=== PATIENT | female | born 1985 | race Asian ===

== ENCOUNTER 2021-11-08 22:30 | Inpatient (IN) | payer OTHER ==
[~2021-11-08] VITALS: Ht 165.1 cm; Wt 84.5 kg
[~2021-11-08 22:30] MED LIST: LORTAB 5/500 501 TAB PO; SYNTHROID0.125 MG/T PO
[2021-11-08 23:27] LABS: BASO # 0.1 K/mm3 (0.0-0.2); BASO % 0.5 % (0.0-2.0); EOS # 0.3 K/mm3 (0.0-0.7); EOS % 3.6 % (0.0-4.0); GRAN # 7.3 K/mm3 (1.4-6.5); GRAN % 76.9 % (42.2-75.2); HEMATOCRIT 40.2 % (37.0-47.0); HEMOGLOBIN 13.1 g/dl (12.5-16.0); LYMPH % 10.5 % (20.0-51.0); MEAN CELL VOLUME 89 fl (80.0-100.0); MEAN CORPUSCULAR HEMOGLOBIN 29 pg (27-31); MEAN CORPUSCULAR HGB CONC 33 g/dl (33.0-37.0); MEAN PLATELET VOLUME 10.4 fl (7.4-10.4); MONO # 0.8 K/mm3 (0.1-0.6); MONO % 8.3 % (1.7-9.3); PLATELET COUNT 369 K/mm3 (130-400); REDCELL DISTRIBUTION WIDTH-CV 17.1 % (11.5-14.5)
[2021-11-08 23:48] LABS: ALBUMIN 3.5 gm/dL (3.5-5.0); BILIRUBIN,TOTAL 0.3 mg/dL (0.2-1.2); C-REACTIVE PROTEIN 1.42 mg/dL (0.00-0.50); CALCIUM 8.5 mg/dL (8.4-10.2); CREATININE, serum 0.69 mg/dL (0.57-1.11); POTASSIUM 3.6 mmol/L (3.5-4.5); TOTAL PROTEIN 6.8 gm/dL (6.2-8.1)
[2021-11-09] VITALS (15 sets, daily range): BP systolic 108–129; BP diastolic 51–66; PULSE 68–84; TEMP 98–99.1
[2021-11-09 00:42] LABS: COLLECTION METHOD CLEAN CATCH
[2021-11-09 01:01] LABS: MUCOUS Present (NOT PRESENT); PH 5 (5-8); SQUAMOUS EPITHELIAL 0-2 /hpf (0-10); URINE APPEARANCE Clear (CLEAR/HAZY); URINE BACTERIA None Seen /hpf (NONE SEEN); URINE BILIRUBIN Negative (NEGATIVE); URINE BLOOD 1+ (NEGATIVE); URINE COLOR Yellow (YELLOW); URINE GLUCOSE Negative (NEGATIVE); URINE KETONE 2+ (NEGATIVE); URINE LEUKOCYTE ESTERASE Negative (NEGATIVE); URINE NITRATE Negative (NEGATIVE); URINE PROTEIN(semi-quant) Negative (NEGATIVE); URINE RBC 0-2 /hpf (0-2)
--- NOTE | 2021-11-09 02:29 | NUR ---
PT ARRIVES VIA W/C TO ROOM 324. IS ALERT AND ORIENTED X4.
[2021-11-09] MEDS ORDERED: HAILEY 24 FE 11 EACH PO (02:37)
--- NOTE | 2021-11-09 03:02 | NUR ---
MORPHINE 2MG IVP GIVEN FOR ABD PAIN. ORIENTED TO ROOM AND BED CONTROLS.
--- NOTE | 2021-11-09 06:15 | NUR ---
Pt reports nausea and pain, Zofran and Morphine given at this time.
[2021-11-09 07:57] LABS: BASO # 0.1 K/mm3 (0.0-0.2); BASO % 0.5 % (0.0-2.0); EOS # 0.3 K/mm3 (0.0-0.7); EOS % 2.5 % (0.0-4.0); GRAN # 8.5 K/mm3 (1.4-6.5); GRAN % 82.2 % (42.2-75.2); HEMATOCRIT 37.2 % (37.0-47.0); HEMOGLOBIN 12.1 g/dl (12.5-16.0); LYMPH # 0.8 K/mm3 (1.2-3.4); LYMPH % 7.9 % (20.0-51.0); MEAN CELL VOLUME 90 fl (80.0-100.0); MEAN CORPUSCULAR HEMOGLOBIN 29 pg (27-31); MEAN CORPUSCULAR HGB CONC 33 g/dl (33.0-37.0); MEAN PLATELET VOLUME 10.3 fl (7.4-10.4); MONO # 0.7 K/mm3 (0.1-0.6); MONO % 6.6 % (1.7-9.3); PLATELET COUNT 331 K/mm3 (130-400); RED BLOOD COUNT 4.13 M/mm3 (4.10-5.30)
[2021-11-09 08:10] LABS: BILIRUBIN,TOTAL 0.3 mg/dL (0.2-1.2); CALCIUM 7.7 mg/dL (8.4-10.2); CREATININE, serum 0.67 mg/dL (0.57-1.11); POTASSIUM 3.8 mmol/L (3.5-4.5); TOTAL PROTEIN 5.8 gm/dL (6.2-8.1)
--- NOTE | 2021-11-09 09:14 | NUR ---
AGREE WITH MYRIAM DONALD'S ASSESSMENTS OF PATIENT THIS AM.
--- NOTE | 2021-11-09 10:15 | NUR ---
PATIENT RESTING IN BED UPON ARRIVAL. VSS. PATIENT DENIES ANY PAIN AT THIS TIME. PATIENT REQUESTS FOR HER DAD, BHAVNA, TO BE NOTIFIED WHEN DR. HALE ROUNDS. PATIENT IS RESTING IN BED WITH CALL LIGHT NEAR.
--- NOTE | 2021-11-09 11:48 | NUR ---
PATIENT TO SURGERY PER BED WITH ÁLVARO DONALD FROM PACU.
--- NOTE | 2021-11-09 12:22 | NUR ---
Sw met with pt who stated preference to return home once medically stable. The pt lives at home with her parents. Her next of kin is her mother, Jody [phone]. The pt is independent on all ADLS and does not use and DME. The pt reports she does not have a PCP and declinded services of finding one. The pt gets her medications from [facility] and does not have any problems obtaining medications. NO DPOA-HC and not interested at this time. Time of DC father will be picking her up. No other needs stated. Sw to await further recommendations and follow up as needed. DC Plan: home
--- NOTE | 2021-11-09 19:30 | NUR ---
Bedside shift report received, assumed care for night court magistrate. Assessment complete. A&Ox4. Denies nausea/shortness of breath. VS stable. Rating pain 8/10 on pain scale-described as sharp intermittent pains-dilaudid given per dr order. Right AC IV with LR@@100mls/hr-infusing without difficulty. Remains NPO but provided with a small amount of water and sponges to moisten mouth. SCDs bilat. Plan of care discussed for this shift to include meds/calling for questions/concerns. Verbalizes understanding/denies needs. Call light in reach. Will monitor.
[2021-11-10] VITALS (14 sets, daily range): BP systolic 106–123; BP diastolic 44–66; PULSE 70–86; TEMP 97.9–98.7
--- NOTE | 2021-11-10 00:18 | NUR ---
Called with c/o pain and nausea. Rating pain 8/10 on pain scale to left abdomen-described as sharp intermittent pains. Dilaudid/zofran given per dr yost.
--- NOTE | 2021-11-10 04:00 | NUR ---
Called with c/o pain to left side of abdomen-rating pain 6/10 on pain scale-described as intermittent sharp pains. Dilaudid given per dr yost.
--- NOTE | 2021-11-10 05:58 | NUR ---
Rested off and on this shift. Received dilaudid several times for pain as well as zofran x1 for nausea. Has remained NPO. SCDs off per request. LR@100ml/hr to right AC IV-infusing well. Denies current questions/concerns. Call light in reach. Will monitor.
[2021-11-10 06:53] LABS: BASO # 0.1 K/mm3 (0.0-0.2); BASO % 0.6 % (0.0-2.0); EOS # 0.2 K/mm3 (0.0-0.7); EOS % 2.1 % (0.0-4.0); GRAN # 7.3 K/mm3 (1.4-6.5); GRAN % 80.6 % (42.2-75.2); HEMOGLOBIN 11.3 g/dl (12.5-16.0); LYMPH # 0.8 K/mm3 (1.2-3.4); LYMPH % 8.6 % (20.0-51.0); MEAN CELL VOLUME 93 fl (80.0-100.0); MEAN CORPUSCULAR HEMOGLOBIN 29 pg (27-31); MEAN CORPUSCULAR HGB CONC 31 g/dl (33.0-37.0); MEAN PLATELET VOLUME 11.2 fl (7.4-10.4); MONO # 0.7 K/mm3 (0.1-0.6); MONO % 7.8 % (1.7-9.3); PLATELET COUNT 324 K/mm3 (130-400); RED BLOOD COUNT 3.88 M/mm3 (4.10-5.30); REDCELL DISTRIBUTION WIDTH-CV 16.7 % (11.5-14.5)
[2021-11-10 07:07] LABS: ALBUMIN 2.8 gm/dL (3.5-5.0); BILIRUBIN,TOTAL 0.3 mg/dL (0.2-1.2); CALCIUM 7.7 mg/dL (8.4-10.2); CREATININE, serum 0.63 mg/dL (0.57-1.11); POTASSIUM 3.8 mmol/L (3.5-4.5); TOTAL PROTEIN 5.4 gm/dL (6.2-8.1)
[2021-11-10 07:09] LABS: HEMATOCRIT 36.1 % (37.0-47.0)
--- NOTE | 2021-11-10 09:54 | NUR ---
Initial visit; Patient thanked Primary Clinician for looking in on her and offering God's blessings. Primary Clinician will keep Cali in her prayers.
--- NOTE | 2021-11-10 10:16 | NUR ---
RECEIVED REPORT.PATIENT ALERT AND ORIENTED X3 AND RESTING IN BED. VSS. PATIENT HERE FOR ABDOMINAL PAIN, POST SIGMOIDOSCOPY YESTERDAY AND PREPARING FOR A SUBTOTAL COLECTOMY TODAY. PATIENT DENIES ANY QUESTIONS OR CONCERNS ABOUT SURGERY. PATIENT TOOK A SHOWER AND FELT THE PAIN HAD INCREASED DUE TO THE AMBULATION AND MOVEMENT. PATIENT C/O PAIN 7/10. PATIENT GIVEN PAIN MEDICATION. PATIENT STATES THE PAIN DECREASED TO A 5/10. PATIENT IS RESTING IN BED WITH CALL LIGHT WITHIN REACH.
--- NOTE | 2021-11-10 13:05 | NUR ---
Spoke to Cain Corado, made him aware of blood glucose of 66. No new orders at this time. Patient prepped for OR, check list completed. Lr to gravity. Patinet to the Or with Stephen lipscomb. Patient mother to Or waiting room.
--- NOTE | 2021-11-10 19:13 | NUR ---
Patient has returned from Or. Her supportive mother at bedside. Patient sleeping soundly. Arouses to name, but sleepy. Vss on O2. Midline incision dressing intact. Slight shadowing noted to top of incision. One lap site staple open to air. Ostomy appliance intact, stoma pink. no output. Nation to DD, urine output to be closely monitor. Ivf per orders, Lr to RAC. Blood sugar was rechecked, stable at 81. Bedside report to Jacinta.
--- NOTE | 2021-11-10 20:40 | NUR ---
PT DROWSY, COMPLAINS OF ABD PAIN. MEDICATED WITH DILAUDID 0.5MG IVP NOW. HAS MIDLINE INCISION WITH SHADOWING AT LOWER PORTION OF INCISION, LAP SITE PAULINO. VELÁSQUEZ WITH YELLOW URINE, CARES PROVIDED. ZOFRAN GIVEN FOR MILD NAUSEA, ICE CHIPS GIVEN.
--- NOTE | 2021-11-10 22:15 | NUR ---
DR RIVERA CALLED FOR PERSISTENT NAUSEA, PHENERGAN ORDERED.
--- NOTE | 2021-11-10 22:18 | NUR ---
PT REPORTS ABD PAIN 10/10, DILAUDID 0.5MG IVP AND OXYCODONE 5MG PO NOW.
--- NOTE | 2021-11-10 23:40 | NUR ---
PHENERGAN 12.5MG IVPB GIVEN FOR PERSISTENT NAUSEA.
[2021-11-11] VITALS (10 sets, daily range): BP systolic 111–134; BP diastolic 45–76; PULSE 62–100; TEMP 97.8–98.7
--- NOTE | 2021-11-11 00:34 | NUR ---
PT REPORTS NO NAUSEA, CRAMPING PAIN TO ABD, DILAUDID 0.5MG IVP NOW. MIDLINE INCISION WITH DISTAL INCISIONAL DRAINAGE NOTED. VELÁSQUEZ WITH GOOD OUTPUT.
--- NOTE | 2021-11-11 02:52 | NUR ---
Pt medicated with Oxycodone 5mg po and Dilaudid 0.5mg IVP at this time for abd pain 06/13.
--- NOTE | 2021-11-11 05:50 | NUR ---
CHANGED MIDLINE DRSG D/T SATURATION AND REPLACED WAFER/OSTOMY APPLIANCE D/T LEAKAGE. HAD 50CC BROWN LIQUID IN OSTOMY BAG. MEDICATED WITH DILAUDID 0.5MG IVP AT THIS TIME. REPORTS ONLY MILD NAUSEA. VELÁSQUEZ WITH GOOD URINE OUTPUT. IV SITE TO RAC WITH LR INFUSING WITHOUT PROBLEM.
[2021-11-11 06:51] LABS: HEMATOCRIT 39.4 % (37.0-47.0); HEMOGLOBIN 12.5 g/dl (12.5-16.0); MEAN CELL VOLUME 93 fl (80.0-100.0); MEAN CORPUSCULAR HEMOGLOBIN 30 pg (27-31); MEAN CORPUSCULAR HGB CONC 32 g/dl (33.0-37.0); MEAN PLATELET VOLUME 11.2 fl (7.4-10.4); PLATELET COUNT 341 K/mm3 (130-400); RED BLOOD COUNT 4.23 M/mm3 (4.10-5.30); REDCELL DISTRIBUTION WIDTH-CV 16.2 % (11.5-14.5)
[2021-11-11 07:20] LABS: CALCIUM 7.9 mg/dL (8.4-10.2); CREATININE, serum 0.71 mg/dL (0.57-1.11); MAGNESIUM 1.4 mg/dL (1.6-2.6); PHOSPHOROUS 2.1 mg/dL (2.3-4.7); POTASSIUM 4.4 mmol/L (3.5-4.5)
--- NOTE | 2021-11-11 15:38 | NUR ---
Received report. Patient drowsy, but arousable upon arrival. Patient alert and oriented. Lung sounds CTA. Assessed dressing and surgical site. Dressing clean and dry. Patient C/O pain with any movement. CAPSULE INSPECTOR pump ordered. Patient claimed her pain significantly reduced after beginning CAPSULE INSPECTOR pump going from a 7/10 to 2/10. Patient moved to chair prior to lunch. Patient tolerated clear liquids well.
--- NOTE | 2021-11-11 16:31 | NUR ---
Changed patient's dressing and wafer. Stoma was leaking onto wafer and midline dressing. Applied 4x4 and tape.
[2021-11-12] VITALS (9 sets, daily range): BP systolic 107–141; BP diastolic 52–73; PULSE 84–105; TEMP 98–98.9
--- NOTE | 2021-11-12 06:00 | NUR ---
CHANGED PTS MIDLINE DRSG D/T DRAINAGE. EMPTIED 70CC BAÑUELOS LIQUID FROM OSTOMY. PT HAS BEEN UP X1 FOR YULISA PAD CHANGE R/T HAVING HER PERIOD. PT RATES PAIN 2/10, DIP GUIDER STOVES DILAUDID CONTINUES.
[2021-11-12 07:03] LABS: MEAN CELL VOLUME 91 fl (80.0-100.0); MEAN CORPUSCULAR HGB CONC 32 g/dl (33.0-37.0); MEAN PLATELET VOLUME 10.3 fl (7.4-10.4); PLATELET COUNT 266 K/mm3 (130-400); RED BLOOD COUNT 3.38 M/mm3 (4.10-5.30); REDCELL DISTRIBUTION WIDTH-CV 15.8 % (11.5-14.5)
[2021-11-12 07:10] LABS: HEMATOCRIT 30.9 % (37.0-47.0); MEAN CORPUSCULAR HEMOGLOBIN 30 pg (27-31)
[2021-11-12 07:24] LABS: CALCIUM 7.7 mg/dL (8.4-10.2); CREATININE, serum 0.57 mg/dL (0.57-1.11); MAGNESIUM 1.5 mg/dL (1.6-2.6); PHOSPHOROUS 1.1 mg/dL (2.3-4.7); POTASSIUM 3.5 mmol/L (3.5-4.5)
--- NOTE | 2021-11-12 10:15 | NUR ---
Pt resting in bed upon entering room. Assisted pt to the restroom. She did well with standby assist and help with IV pole. She stated ambulation was not as bad as it was yesterday. Pt rating her pain 3/10 with movement. Pt is menstruating. Once pt back in bed, removed dressing. Midline incision with gordon intact. Removed wafer from ostomy, cleaned up site and new appliance applied. Dr Whiteside at bedside during this. Pt tolerated well. Once done, discussed different supplies with pt as well as ostomy care. IV fluids decreased per order.
--- NOTE | 2021-11-12 14:36 | NUR ---
Pt has been sitting up in the chair for a while. Assisted her to the restroom, pt was not able to void. Changed out underwear and pad. Assisted pt back to bed. She does move well, just slow. Pt continues to use HEALTH CLUB ATTENDANT for pain management. Once back in bed, had to change appliance due to it leaking. Tried different type of wafer. Talked through care while changing it. Ostomy continues to put out brown liquid stool. Watch Guard Gate in to talk with pt
--- NOTE | 2021-11-12 17:54 | NUR ---
Pt ambulated to the restroom. She did well and was able to void. Appliance again changed once pt got back to bed due to leaking. Pt appears tired. Reports that the pain is tolerable while using the CLINICAL CARE MANAGER. Ostomy is putting out more liquid stool at this time. Output is starting to have some consistency to it. Pt does have some complaints of feeling nauseated. PRN zofran given.
[2021-11-13] VITALS (8 sets, daily range): BP systolic 111–130; BP diastolic 60–70; PULSE 71–99; TEMP 97.6–98.6
--- NOTE | 2021-11-13 03:26 | NUR ---
PATIENT DOING WELL TONIGHT. C/O NAUSEA AT START OF SHIFT AND PRN PHENERGAN GIVEN. THEN PRN ZOFRAN LATER IN SHIFT. MIDLINE WITH SAMANTHA CDI AND OPEN TO AIR. ILLEOSTOMY HAS NOT LEAKED YET FOR US TONIGHT. HAS HAD BROWN/GREEN OUTPUT. PAIN CONTROLLED WITH INFORMATION SCIENTIST. ON PERIOD, MORE PADS AND MESH UNDERWEAR PROVIDED. NO FURTHER NEEDS AT THIS TIME.
[2021-11-13 06:38] LABS: HEMOGLOBIN 11.8 g/dl (12.5-16.0)
[2021-11-13 06:50] LABS: HEMATOCRIT 36.8 % (37.0-47.0)
[2021-11-13 06:59] LABS: CREATININE, serum 0.56 mg/dL (0.57-1.11); MAGNESIUM 1.7 mg/dL (1.6-2.6); PHOSPHOROUS 2.8 mg/dL (2.3-4.7); POTASSIUM 3.4 mmol/L (3.5-4.5)
--- NOTE | 2021-11-13 07:03 | NUR ---
Pt resting with eyes closed, even non labored breathing during shift report
--- NOTE | 2021-11-13 09:00 | NUR ---
Pt resting in bed upon entering for assessment. Pt rating pain 2/10 at this time, using DUMPSTER OPERATOR. Dr Whiteside has been in to see pt, new orders wrote. Discussed new orders with pt. Ostomy appliance well secure. Emptied pouch and let air out. Pt denies any other needs, call light within reach
--- NOTE | 2021-11-13 09:26 | NUR ---
Follow up visit; Patient seemed glad that Radiographer Angiogram visited and wished her well.
--- NOTE | 2021-11-13 11:19 | NUR ---
APRYL met with the patient to follow up and review discharge plan. The patient states that she is doing well. She confirms that she plans on returning home with her parents upon discharge. The patient had an ostomy placed and will be discharging home with the ostomy. The patient in unsure how she feels about going home with it. The patient reports that she does not have a PCP. APRYL discussed having the hospital staff assist her with getting established with one before she discharges. The patient was open to this and states that her friend recommended Dr. Gold's office. She would be interested in getting set up at [facility]. APRYL staffed with the patient's RN and confirmed that the patient will be discharged with the ostomy and that the Surgical Director typically orders at ostomy supply pack for the patient to go home with. APRYL contacted [facility] and secured the patient an appointment with [facility] on December 04, 2021 at 1100. The switchboard operator receptionist reports that this is the soonest they can get the patient in, due to her not already being established with them. APRYL notified the community health nurse staff of the appointment. APRYL to continue to follow to assist with ostomy supplies.
--- NOTE | 2021-11-13 13:00 | NUR ---
PT doing well today, not using OUTREACH AND EDUCATION SOCIAL WORKER often. Pain staying around 2/10. Ostomy appliance has continued to stay in place. Pt continues to have a good amount of liquid stool out. Pt is tolerating general diet, just eating very little at a time. Discussed her taking a shower today and she stated that she did want to. No other needs, call light within reach
--- NOTE | 2021-11-13 17:30 | NUR ---
Pt did shower and reported that she felt good. She stated that her pain stayed managable during this time as well. Pts dad is in the room with her at this time. Pt denies any needs. She overall was up most of the day and was in good spirits. Call light within reach, will continue to monitor
--- NOTE | 2021-11-13 22:56 | NUR ---
Patient assessed around 1944. Emptied illeostomy, liquid stool present. No leaking to site noted. Peripheral IV to left hand, with CUSTOMS CONSULTANT. Reports pain well under control. Denies any questions, needs, or concerns at this time. In bed with call light within reach.
[2021-11-14 00:01] VITALS: BP 117/63; PULSE 85; TEMP 98.2
[2021-11-14 04:04] VITALS: BP 112/59; PULSE 75; TEMP 97.7
--- NOTE | 2021-11-14 06:07 | NUR ---
Patient has been resting in bed. Has called for illeostomy to be emptied. No leaks this shift. Reports pain is well controlled. Voices no questions, needs, or concerns at this time. In bed with call light within reach.
[2021-11-14 07:47] LABS: CALCIUM 8.1 mg/dL (8.4-10.2); CREATININE, serum 0.56 mg/dL (0.57-1.11); MAGNESIUM 1.6 mg/dL (1.6-2.6); PHOSPHOROUS 1.5 mg/dL (2.3-4.7); POTASSIUM 3.7 mmol/L (3.5-4.5)
[2021-11-14 07:55] VITALS: BP 106/51; PULSE 80; TEMP 98.5
--- NOTE | 2021-11-14 08:00 | NUR ---
PATIENT IS A&O. VSS. PATIENT REPORTS MILD DISCOMFORT THAT IS CONTROLED WITH THE SCHEDULED TYLENOL. PATIENT WENT ON TO SAY SHE HAD NOT USED THE THERAPIST'S ASSISTANT SINCE THE PREVIOUS DAY. ABD MIDLINE IS WELL APPROXIMATED WITH SAMANTHA INTACT AND PAULINO. ABD LAP SITE X1 WITH STAPLE INTACT AND CROCODILE FARMER. BOWL SOUNDS PRESENT. ILEOSTOMY PRODUCTING LOTS OF FLATUS, DARK GREEN LIQUID ОЛЬГА. IV FLUIDS INFUSING VIA PUMP INTO LEFT HAND IV. NO C/O N/V. AM MEDS GIVEN. HEAD TO TOE ASSESSMENT COMPLETE. NO OTHER NEEDS AT THIS TIME. CALL LIGHT IN REACH.
--- NOTE | 2021-11-14 11:35 | NUR ---
AT BEDSIDE DISCUSSING CHEMO THERAPY AND SEEING AN ONCOLOGIST. ALSO AT BEDSIDE.
[2021-11-14] MEDS ORDERED: NORCO 325 MG-51 TAB PO (11:43)
--- NOTE | 2021-11-14 12:00 | NUR ---
CRYPTOANALYSIS TEACHER DC'D PER ORDERS.
[2021-11-14 15:07] VITALS: BP 120/63; PULSE 83; TEMP 97.5
--- NOTE | 2021-11-14 15:37 | NUR ---
APRYL staffed with the Surgical Loan Funder, Marce. Marce is ordering ostomy supplies.
[2021-11-14 22:09] VITALS: BP 122/61; PULSE 68; TEMP 98.2
[2021-11-14 23:50] VITALS: BP 112/79; PULSE 77; TEMP 98.3
--- NOTE | 2021-11-15 03:33 | NUR ---
PATIENT DOING WELL TONIGHT. ALERT AND ORIENTED. DISCUSSED WITH PATIENT THAT SHE MAY BE INDEPENDENT IN HER ROOM BUT CALL IF SHE NEEDS HELP. MIDLINE CDI AND OPEN TO AIR, ABD LAP SITE X1 CDI AND OPEN TO AIR. ILLEOSTOMY WITH GREEN LIQUID OUTPUT AND LOTS OF AIR. INT L HAND PATENT AND FLUSHES EASILY. DENIES PAIN NEEDS OUTSIDE OF SCHEDULED TYLENOL. CURRENTLY RESTING IN BED, CALL LIGHT WITHIN REACH.
[2021-11-15 04:56] VITALS: BP 122/67; PULSE 74; TEMP 99.2
[2021-11-15 07:23] VITALS: BP 125/62; PULSE 72; TEMP 98
[2021-11-15 07:28] LABS: CALCIUM 8.5 mg/dL (8.4-10.2); CREATININE, serum 0.56 mg/dL (0.57-1.11); MAGNESIUM 1.5 mg/dL (1.6-2.6); PHOSPHOROUS 3.7 mg/dL (2.3-4.7); POTASSIUM 3.2 mmol/L (3.5-4.5)
--- NOTE | 2021-11-15 08:00 | NUR ---
PATIENT IS A&O AND SITTING UP IN BED. VSS. DENIES PAIN OR N/V. ABD MIDLINE IS WELL APPROXIMATED WITH SAMANTHA. ABD LAP SITE X1 WITH SAMANTHA INTACT. ILEOSTOMY WITH WAFER & BAG INTACT PRODUCTING MOD AMOUNTS OF FLATUS AND DARK GREEN LIQUID STOOL. NURSING TALKED WITH PATIENT ABOUT HER STARTING TO CARE FOR HER OSTOMY. NURSING EDUCATION PROVIDED ON BURPING, EMPTYING & PROPER CLOSURE. NURSING AGREED TO EASE PATIENT INTO THE OSTOMY EDUCATION. PATIENT EAT/DRINK/VOIDING SUFFICIENT AMOUNTS. LEFT HAND IV TO INT. AM MEDS GIVEN. HEAD TO TOE ASSESSMENT COMPLETE. NO OTHER NEEDS AT THIS TIME. CALL LIGHT IN REACH.
[2021-11-15 12:25] VITALS: BP 119/70; PULSE 78; TEMP 98
--- NOTE | 2021-11-15 13:40 | NUR ---
PATIENT CALLED OUT AND REPORTED HER IV STARTED TO HURT. LEFT HAND IV INFILTRATED AT THE END OF HER MAG INFUSION. RN ROZINA'D IV SITE, ELEVATED LEFT HAND AND APPLIED WARM BLANKET. WILL MONITOR.
[2021-11-15 16:27] VITALS: BP 124/77; PULSE 85; TEMP 98.1
--- NOTE | 2021-11-15 21:00 | NUR ---
PATIENT IS CALM IN THE ROOM.PATIENT DENIES PAIN.PATIENT HAS AN ILEOSTOMY DRAINING GREENISH WATERY DRAINAGE.PATIENT HAS NO IV ACCESS.PATIENT IS INDEPENDENT IN THE ROOM.NO OTHER NEEDS AT THIS TIME.
[2021-11-15 21:45] VITALS: BP 116/66; PULSE 81; TEMP 98.6
[2021-11-16 00:20] VITALS: BP 112/61; PULSE 81; TEMP 98.8
[2021-11-16 04:13] VITALS: BP 115/59; PULSE 77; TEMP 98.5
--- NOTE | 2021-11-16 05:59 | NUR ---
PATIENT HAD A CALM NIGHT.PATIENT WAS TAUGHT HOW TO EMPTY THE ILEOSTOMY BAG BUT SHE STILL CALLS FOR HELP TO HAVE IT EMPTIED.PATIENT DENIES PAIN.NO OTHER NEEDS AT THIS TIME.
[2021-11-16 07:25] VITALS: BP 113/62; PULSE 78; TEMP 98
[2021-11-16 07:58] LABS: CALCIUM 8.8 mg/dL (8.4-10.2); CREATININE, serum 0.62 mg/dL (0.57-1.11); POTASSIUM 4.2 mmol/L (3.5-4.5)
[2021-11-16 12:23] VITALS: BP 111/65; PULSE 83; TEMP 98
[2021-11-16 15:21] VITALS: BP 112/70; PULSE 84; TEMP 97.7
[2021-11-16 19:22] VITALS: BP 110/63; PULSE 87; TEMP 98.2
--- NOTE | 2021-11-16 20:00 | NUR ---
Pt. sitting up in bed. Pt. is A&OX3, assessment complete. No IV access at this time. Abd. incisions CDI. Ileostomy patent at this time. Pt. denies pain or other needs, call light within reach.
[2021-11-17 00:21] VITALS: BP 109/68; PULSE 82; TEMP 98.5
[2021-11-17 04:58] VITALS: BP 106/72; PULSE 79; TEMP 98.4
[2021-11-17 07:08] LABS: CALCIUM 8.9 mg/dL (8.4-10.2); CREATININE, serum 0.65 mg/dL (0.57-1.11); MAGNESIUM 2.1 mg/dL (1.6-2.6); PHOSPHOROUS 3.3 mg/dL (2.3-4.7)
--- NOTE | 2021-11-17 08:00 | NUR ---
PATIENT IS A&O. VSS. DENIES PAIN, JUST REPORTS SOME CRAMPING. PATIENT IS ALSO ON HER PERIOD. ABD MIDLINE WITH SAMANTHA INTACT & CHAIRMAN & CO FOUNDER. ABD LAP SITE X1 WITH STAPLE AND PAULINO. ILEOSTOMY WITH WAFER & BAG, PRODUCING MOD AMOUNTS OF SOFT STOOL & FLATUS. GENERAL DIET. BREAKFAST TRAY AT BEDSIDE. AM MEDS GIVEN. HEAD TO TOE ASSESSMENT COMPLETE. PATIENT STARTED THE PROCESS OF EMPTING HER OSTOMY THIS WEEKEND. PATIENT WANTS TO SHOWER TODAY AND NURSING WILL GO OVER EDUCATION FOR CHANGING OSTOMY APPLIANCE. NURSING TALKED WITH MANAGER AVIATION WEDNESDAY ABOUT ORDERING SUPPLIES. SOCIAL SERVICE TO TALK WITH PATIENT ABOUT GOING HOME WITH SERVICES.
[2021-11-17 08:04] VITALS: BP 118/57; PULSE 85; TEMP 97.1
--- NOTE | 2021-11-17 10:33 | NUR ---
Spoke with the patient about the need for HH services. Patients father Cooper present at bedside. Patient would like to be established with [facility]-. Phone call made to Sweetie and referral faxed.
--- NOTE | 2021-11-17 11:50 | NUR ---
PATIENT OUT OF SHOWER. NURSING AT BEDSIDE TO PROVIDE OSTOMY APPLIANCE EDUCATION. NOW AT BEDSIDE.
--- NOTE | 2021-11-17 12:00 | NUR ---
PATIENT & FATHER GIVEN OSTOMY EDUCATION WITH NEW APPLIANCE APPLICATION. PATIENT VERBALIZED UNDERSTANDING AND ASSISTED WITH REMOVAL/APPLICATION. ANSWERED QUESTIONS. PATIENT WILL BE GOING HOME WITH SERVICES TO ASSIST IN OSTOMY CARES.
[2021-11-17 12:12] VITALS: BP 123/71; PULSE 89; TEMP 98.1
--- NOTE | 2021-11-17 13:13 | NUR ---
Sweetie with [facility] calls to state that the patient has an out of state [facility] policy and that the cost for services would be 50% out of pocket once deductible met. Notified the patient that if she was not wanting to go through her insurance it would be $160 for the first visit and $65 for any additional visits. Patient reports that she would like to move forward with the HH running through her insurance. LM for Ivis explaining the above.
--- NOTE | 2021-11-17 13:40 | NUR ---
PATIENT DISCHARGING HOME WITH HOME HEALTH. GAVE DISCHARGE EDUCATION, E-SCRIPT SENT, DISCUSSED F/U APTS DISCUSSED, AND OSTOMY TEACHING GIVEN. ANSWERED QUESTIONS/CONCERNS. NO IV SITE. PATIENT IS DRESSED, PACKED AND DISCHARGING HOME VIA WC TO PERSONAL VEHICLE WITH HER DAD.
--- NOTE | 2021-11-18 10:57 | NUR ---
Discharge orders faxed to [facility].
== END 2021-11-17 13:40 | disposition home health service (06) | DRG 330 ==
LOC: COL.ER 22:30 → SURG 11-09 00:51 → COL.ER 11-09 00:51 → SURG 11-09 00:51 → COL.ER 11-09 02:10 → SURG 11-10 09:27
PROVIDERS: Physician Assistant; Surgery; ADMIT Surgery
PROC: 0DJD8ZZ Inspection of Lower Intestinal Tract, Via Natural or Artificial Opening Endoscopic (ICD-10-PCS; 2021-11-09)
PROC: 0D1B0Z4 Bypass Ileum to Cutaneous, Open Approach (ICD-10-PCS; 2021-11-10)
PROC: 0DTM0ZZ Resection of Descending Colon, Open Approach (ICD-10-PCS; 2021-11-10)
PROC: 0DTK0ZZ Resection of Ascending Colon, Open Approach (ICD-10-PCS; 2021-11-10)
PROC: 0DTH0ZZ Resection of Cecum, Open Approach (ICD-10-PCS; 2021-11-10)
PROC: 0DTL0ZZ Resection of Transverse Colon, Open Approach (ICD-10-PCS; 2021-11-10)
PROC: 0DTN0ZZ Resection of Sigmoid Colon, Open Approach (ICD-10-PCS; principal; 2021-11-10 14:00)
DX: C18.7 Malignant neoplasm of sigmoid colon (principal); K56.609 Unspecified intestinal obstruction, unspecified as to partial versus complete obstruction; D64.9 Anemia, unspecified; E89.0 Postprocedural hypothyroidism; K59.09 Other constipation; E83.42 Hypomagnesemia; E83.39 Other disorders of phosphorus metabolism; E87.6 Hypokalemia; Z20.822 Contact with and (suspected) exposure to COVID-19; Z85.850 Personal history of malignant neoplasm of thyroid
CPT/HCPCS: OP; A4314; A9284; J0330; J1170; J1650; J2250; J2270; J2405; J2550; J2704; J2795; J3010; J3475; J3480; J7030; J7050; J7120; Q9967

== ENCOUNTER 2022-01-01 07:49 | Day surgery (SDC) | payer OTHER ==
[~2022-01-01] VITALS: Ht 165.1 cm; Wt 79.4 kg
[~2022-01-01 07:49] MED LIST changes: +HAILEY 24 FE 11 EACH PO; +NORCO 325 MG-51 TAB PO
[2022-01-01 08:52] VITALS: BP 103/54; PULSE 79; TEMP 98.2
[2022-01-01 10:36] VITALS: BP 102/46; PULSE 71; TEMP 97
[2022-01-01] MEDS ORDERED: NORCO 325 MG-51 TAB PO (10:47)
[2022-01-01 10:51] VITALS: BP 110/66; PULSE 74; TEMP 97.7
[2022-01-01 11:06] VITALS: BP 108/51; PULSE 72
--- NOTE | 2022-01-01 11:58 | NUR ---
1036: Patient arrived back into bay 7 from OR. Report recived from SHABANA Hooks and NARCISA Gregorio. Patient awake and alert. Requesting blueberry muffin and orange juice. Patient denies pain or nausea at this time. 1051: Patient tolerating food and drink well. Denies pain or nausea. 1100: Patient up to restroom. Able to void successfully. Denies pain or nausea at this time. 1105: Patient to get dressed independently in room. IV to saline lock. Patient's father called and notified that patient would be ready to go in 10-15 minutes. 1110: Patient dressed and ready to go. IV removed without complications, coband placed and educated patient to apply pressure if it starts bleeding. Went through discharge instructions with patient. Questions answered. 1115: Patient escorted to emergency department entrance via wheelchair. Patient's dad met patient. Patient got into personal vehicle unassisted. Patient left in the care of her father, Cooper.
== END 2022-01-01 11:20 | disposition home or self-care (01) ==
LOC: SDCO 07:49
PROVIDERS: Surgery
DX: C18.7 Malignant neoplasm of sigmoid colon (principal)
CPT/HCPCS: C1788; J0690; J1644; J2405; J2704; J3010; J7120

== ENCOUNTER 2022-04-03 10:38 | Inpatient (IN) | payer OTHER ==
[2022-04-03] VITALS (298 sets, daily range): BP systolic 142; BP diastolic 80; PULSE 52; TEMP 98.2; O2SAT 81–100
[~2022-04-03] VITALS: Ht 165.1 cm; Wt 81.0 kg
[2022-04-03 12:14] LABS: BASO # 0.1 K/mm3 (0.0-0.2); BASO % 0.7 % (0.0-2.0); GRAN % 72.3 % (42.2-75.2); HEMOGLOBIN 13.7 g/dl (12.5-16.0); LYMPH % 13.7 % (20.0-51.0); MEAN CELL VOLUME 94 fl (80.0-100.0); MEAN CORPUSCULAR HEMOGLOBIN 31 pg (27-31); MEAN CORPUSCULAR HGB CONC 33 g/dl (33.0-37.0); MEAN PLATELET VOLUME 10.8 fl (7.4-10.4); MONO # 0.9 K/mm3 (0.1-0.6); MONO % 12.7 % (1.7-9.3); PLATELET COUNT 241 K/mm3 (130-400); RED BLOOD COUNT 4.49 M/mm3 (4.10-5.30); REDCELL DISTRIBUTION WIDTH-CV 19.7 % (11.5-14.5)
[2022-04-03 12:22] LABS: INR 1.7 (0.8-3.0)
[2022-04-03 12:23] LABS: COLLECTION METHOD CLEAN CATCH
[2022-04-03 12:30] LABS: MUCOUS Present (NOT PRESENT); PH 6 (5-8); SQUAMOUS EPITHELIAL 0-2 /hpf (0-10); URINE APPEARANCE Clear (CLEAR/HAZY); URINE BACTERIA None Seen /hpf (NONE SEEN); URINE BILIRUBIN Negative (NEGATIVE); URINE BLOOD Negative (NEGATIVE); URINE COLOR Yellow (YELLOW); URINE GLUCOSE Negative (NEGATIVE); URINE KETONE 1+ (NEGATIVE); URINE LEUKOCYTE ESTERASE Negative (NEGATIVE); URINE NITRATE Negative (NEGATIVE); URINE PROTEIN(semi-quant) Negative (NEGATIVE); URINE RBC 0-2 /hpf (0-2); URINE UROBILINOGEN Negative (NEGATIVE)
[2022-04-03 12:30] LABS: ALANINE AMINOTRANSFERASE 43 U/L (0-55); ALKALINE PHOSPHATASE 137 U/L (40-150); ANION GAP 26 mmol/L (7-16); AST,SGOT 33 U/L (5-34); BILIRUBIN,TOTAL 0.9 mg/dL (0.2-1.2); BLOOD UREA NITROGEN 19 mg/dL (7-19); CHLORIDE 111 mmol/L (98-107); CREATININE, serum 1.07 mg/dL (0.57-1.11); GLUCOSE 107 mg/dL (70-99); POTASSIUM 4.1 mmol/L (3.5-4.5); SODIUM 149 mmol/L (136-145); TOTAL PROTEIN 8.9 gm/dL (6.2-8.1)
[2022-04-03 12:34] LABS: CARBON DIOXIDE 12 mmol/L (22-29)
[2022-04-03 12:43] LABS: TRICYCLIC ANTIDEPRESS URINE NEGATIVE
[2022-04-03 12:43] LABS: ACETAMINOPHEN < 1.0 ug/mL (10-30); ALCOHOL(ethanol),MEDICAL < 10 mg/dL (0-10); SALICYLATE < 5.0 mg/dL (15.0-30.0)
[2022-04-03 13:26] LABS: TROPONIN-I < 0.010 ng/mL (0.00-0.033)
[2022-04-03 14:14] LABS: ARTERIAL BLD GAS O2 SATURATION 98.4 % (92-100); ARTERIAL BLD GAS TCO2 CT 14.8; ARTERIAL BLOOD GAS BASE EXCESS -8.2 (-2-2); ARTERIAL BLOOD GAS HCO3 14.2 meq/L (22-26); ARTERIAL BLOOD GAS PCO2 21.8 mmHg (35-45); ARTERIAL BLOOD GAS PO2 116.7 mmHg (80-100); ARTERIAL BLOOD GAS pH 7.43 (7.35-7.45)
--- NOTE | 2022-04-03 15:51 | NUR ---
Confirmed with [facility] that patient was coming in to office to have chemo pump removed. Patient recieved 5FU (fluorouricil) and staff should follow chemo precautions when handling patient urine for 1 day (precautions to end 04/04). Notified care team and placed sign outside patient room. Chemo bag and tubing removed from pump and disposed of according to facility policy. Pump placed in chemo precaution bag for family to return to office at their convenience. Staff also aware of what family is to take.
--- NOTE | 2022-04-03 16:26 | NUR ---
Vancomycin Initial Dosing Pharmacy Note Ordering provider: Tylor Petty MD Indication/duration: SEPSIS LABS: WBC 6.9, SCR 1.1, CRCL ~60 Recommendation: VANCOMYCIN 17 MG/KG Loading dose: 1.5 grams Maintenance dose: 1.25 grams every 12 hours Trough goal: 15-20 ug/mL. TROUGH 04/05 @ 1345
[2022-04-03 17:07] LABS: CREATININE, serum 0.8 mg/dL (0.57-1.11)
[2022-04-03 17:22] LABS: CALCIUM 9.1 mg/dL (8.4-10.2)
[2022-04-03 19:12] LABS: GLUCOSE,CSF 57 mg/dL (40-70); TOTAL PROTEIN,CSF 43 mg/dL (15-45)
--- NOTE | 2022-04-03 19:29 | NUR ---
PT RECEIVED FROM ED, PLACED ON ICU MONITORING. PT NOT ALERT AT THIS TIME. DR. WHITE AND JASON RN AT BEDSIDE AT 17:28. PICC LINE PLACED, PT TAKEN TO RADIOLOGY FOR LP AND CT SCANS. ASSESSMENT COMPLETED AND VS OBTAINED, POC UPDATED. FAMILY BEDSIDE AWARE OF SITUATION. PT CURRENTLLY SPEAKING TO THIS RN, NOT FULLY ORIENTED. SHIFT REPORT GIVEN TO ARELI DONALD.
[2022-04-03 19:38] LABS: CSF APPEARANCE CLEAR; CSF COLOR COLORLESS
[2022-04-03 19:39] LABS: CSF MONONUCLEAR 100 % (70-100); CSF POLYMORPHONUCLEAR 0 % (0-6); CSF RBC < 1 /mm3 (0-0)
[2022-04-03 19:51] LABS: CSF APPEARANCE CLEAR; CSF COLOR COLORLESS
[2022-04-03 19:52] LABS: CSF MONONUCLEAR 100 % (70-100); CSF POLYMORPHONUCLEAR 0 % (0-6); CSF RBC 2 /mm3 (0-0)
[2022-04-04] VITALS (1080 sets, daily range): BP systolic 115–136; BP diastolic 70–87; PULSE 38–66; TEMP 97.9–98.8; O2SAT 72–100
[2022-04-04 00:50] LABS: CALCIUM 8.7 mg/dL (8.4-10.2); CREATININE, serum 0.76 mg/dL (0.57-1.11); POTASSIUM 3.9 mmol/L (3.5-4.5)
[2022-04-04 06:41] LABS: BASO % 0.3 % (0.0-2.0); GRAN # 2.8 K/mm3 (1.4-6.5); GRAN % 82.4 % (42.2-75.2); LYMPH # 0.4 K/mm3 (1.2-3.4); LYMPH % 12.6 % (20.0-51.0); MEAN CELL VOLUME 93 fl (80.0-100.0); MEAN CORPUSCULAR HGB CONC 33 g/dl (33.0-37.0); MEAN PLATELET VOLUME 11.6 fl (7.4-10.4); MONO # 0.1 K/mm3 (0.1-0.6); MONO % 4.1 % (1.7-9.3); PLATELET COUNT 150 K/mm3 (130-400); REDCELL DISTRIBUTION WIDTH-CV 18.7 % (11.5-14.5)
[2022-04-04 06:42] LABS: HEMATOCRIT 31.5 % (37.0-47.0); HEMOGLOBIN 10.5 g/dl (12.5-16.0); MEAN CORPUSCULAR HEMOGLOBIN 31 pg (27-31)
[2022-04-04 06:59] LABS: BILIRUBIN,TOTAL 1.1 mg/dL (0.2-1.2); CALCIUM 8.4 mg/dL (8.4-10.2); CREATININE, serum 0.7 mg/dL (0.57-1.11); POTASSIUM 3.8 mmol/L (3.5-4.5); TOTAL PROTEIN 6.3 gm/dL (6.2-8.1)
--- NOTE | 2022-04-04 07:00 | NUR ---
BEDSIDE REPORT RECEIVED FROM SHABANA SINGLETON. PT ALERT AND ORIENTED THIS AM. NO S/S CONFUSION. PICC TO ABDELRAHMAN WITH LR INFUSING. PT OFFERS NO COMPLAINTS. BRADYCARDIC IN THE UPPER 30'S. CARDIOLOGY HAS BEEN CONSULTED AND IS AWARE.
[2022-04-04 07:04] LABS: INR 1.1 (0.8-3.0)
--- NOTE | 2022-04-04 12:31 | NUR ---
Chaplain moura and offered support with patient.
--- NOTE | 2022-04-04 14:25 | NUR ---
SW met with patient to complete intake. Patient states that she lives with her parents Héctor and Torrie Hagan in [place] [facility] [place] [facility]. [phone]. Patient provides she does not utilize DME, is independent with ADL's, PCP is Dr. Delgado, and pharmacy is [facility]. Patient states that she would like to appoint her father as DPOA/HC. DPOA/HC documentation presented, reviewed, completed, signed and witnessed by nurse and SW. Original copy placed in chart and copies made for patient. Patient plans to return to her home upon DC. SW will continue to follow. DC plan:home
[2022-04-05] VITALS (146 sets, daily range): BP systolic 105–130; BP diastolic 59–68; PULSE 58–67; TEMP 97.7–98.8; O2SAT 95–100
[2022-04-05 04:23] LABS: ARTERIAL BLOOD GAS PCO2 28.8 mmHg (35-45); ARTERIAL BLOOD GAS PO2 97.5 mmHg (80-100); ARTERIAL BLOOD GAS pH 7.45 (7.35-7.45)
[2022-04-05 04:24] LABS: ARTERIAL BLOOD GAS BASE EXCESS -3.4 (-2-2); ARTERIAL BLOOD GAS HCO3 19.5 meq/L (22-26)
[2022-04-05 06:37] LABS: BASO % 0.6 % (0.0-2.0); EOS % 0.9 % (0.0-4.0); GRAN # 1.9 K/mm3 (1.4-6.5); GRAN % 56.3 % (42.2-75.2); HEMOGLOBIN 10.2 g/dl (12.5-16.0); LYMPH # 1.2 K/mm3 (1.2-3.4); LYMPH % 36.3 % (20.0-51.0); MEAN CELL VOLUME 94 fl (80.0-100.0); MEAN CORPUSCULAR HEMOGLOBIN 31 pg (27-31); MEAN CORPUSCULAR HGB CONC 33 g/dl (33.0-37.0); MEAN PLATELET VOLUME 11.7 fl (7.4-10.4); MONO # 0.2 K/mm3 (0.1-0.6); MONO % 5.3 % (1.7-9.3); PLATELET COUNT 142 K/mm3 (130-400); REDCELL DISTRIBUTION WIDTH-CV 17.9 % (11.5-14.5)
[2022-04-05 06:48] LABS: INR 0.9 (0.8-3.0); PROTHROMBIN TIME 10.8 SECONDS (9.7-12.8)
[2022-04-05 06:54] LABS: ALBUMIN 2.8 gm/dL (3.5-5.0); BILIRUBIN,TOTAL 0.4 mg/dL (0.2-1.2); CALCIUM 7.7 mg/dL (8.4-10.2); CREATININE, serum 0.7 mg/dL (0.57-1.11); POTASSIUM 3.5 mmol/L (3.5-4.5); TOTAL PROTEIN 6.1 gm/dL (6.2-8.1)
[2022-04-05 06:57] LABS: HEMATOCRIT 31.1 % (37.0-47.0)
--- NOTE | 2022-04-05 20:18 | NUR ---
PT LAYING IN BED RESTING QUIETLY. PT DENIES ANY PAIN AT THIS TIME.
[2022-04-06 00:34] VITALS: BP 111/66; PULSE 62; TEMP 98
[2022-04-06 04:05] VITALS: BP 112/60; PULSE 58; TEMP 97.7
[2022-04-06 06:27] LABS: BASO % 0.6 % (0.0-2.0); EOS # 0.1 K/mm3 (0.0-0.7); EOS % 1.4 % (0.0-4.0); GRAN # 2.3 K/mm3 (1.4-6.5); GRAN % 62.5 % (42.2-75.2); HEMOGLOBIN 10.2 g/dl (12.5-16.0); LYMPH # 1.1 K/mm3 (1.2-3.4); LYMPH % 30.5 % (20.0-51.0); MEAN CELL VOLUME 94 fl (80.0-100.0); MEAN CORPUSCULAR HEMOGLOBIN 30 pg (27-31); MEAN CORPUSCULAR HGB CONC 32 g/dl (33.0-37.0); MEAN PLATELET VOLUME 11.6 fl (7.4-10.4); MONO # 0.2 K/mm3 (0.1-0.6); MONO % 4.7 % (1.7-9.3); PLATELET COUNT 146 K/mm3 (130-400); RED BLOOD COUNT 3.36 M/mm3 (4.10-5.30); REDCELL DISTRIBUTION WIDTH-CV 17.4 % (11.5-14.5)
[2022-04-06 06:40] LABS: ALBUMIN 2.9 gm/dL (3.5-5.0); BILIRUBIN,TOTAL 0.5 mg/dL (0.2-1.2); CALCIUM 8.2 mg/dL (8.4-10.2); CREATININE, serum 0.65 mg/dL (0.57-1.11); POTASSIUM 3.6 mmol/L (3.5-4.5); TOTAL PROTEIN 6.4 gm/dL (6.2-8.1)
[2022-04-06 06:43] LABS: HEMATOCRIT 31.5 % (37.0-47.0)
[2022-04-06 07:24] VITALS: BP 119/63; PULSE 67; TEMP 97.8
[2022-04-06] MEDS ORDERED: LEVAQUIN 750MG750 M1 PO (11:15)
[2022-04-06] MEDS ORDERED: KEPPRA250 MG PO (11:16)
--- NOTE | 2022-04-06 12:06 | NUR ---
1200 - Patient discharge packet reviewed and education provided with family at bedside. All questions answered. PICC line removed by speech language pathology assistantRajan. Peripheral IV removed per protocol. Patient escorted out via wheelchair by staff member and family to hospital entrance.
[2022-04-08 11:19] LABS: HSV 2 DNA PCR QUAL Not Detected (())
== END 2022-04-06 12:30 | disposition home or self-care (01) | DRG 871 ==
LOC: COL.ER 10:38 → ICU 13:50 → SURG 04-05 03:08
PROVIDERS: Nurse Practitioner; ADMIT Internal Medicine
PROC: 02HV33Z Insertion of Infusion Device into Superior Vena Cava, Percutaneous Approach (ICD-10-PCS; principal; 2022-04-03)
PROC: 009U3ZZ Drainage of Spinal Canal, Percutaneous Approach (ICD-10-PCS; 2022-04-03)
PROC: B01B1ZZ Fluoroscopy of Spinal Cord using Low Osmolar Contrast (ICD-10-PCS; 2022-04-03)
DX: A41.9 Sepsis, unspecified organism (principal); R65.21 Severe sepsis with septic shock; G93.41 Metabolic encephalopathy; E87.2 Acidosis; C18.9 Malignant neoplasm of colon, unspecified; D84.9 Immunodeficiency, unspecified; E87.0 Hyperosmolality and hypernatremia; I95.9 Hypotension, unspecified; I10 Essential (primary) hypertension; K59.09 Other constipation; D64.9 Anemia, unspecified; E89.0 Postprocedural hypothyroidism; E86.1 Hypovolemia; Z20.822 Contact with and (suspected) exposure to COVID-19; T38.1X6A Underdosing of thyroid hormones and substitutes, initial encounter; E86.0 Dehydration; R00.1 Bradycardia, unspecified; Z85.850 Personal history of malignant neoplasm of thyroid; Z79.890 Hormone replacement therapy; Z88.8 Allergy status to other drugs, medicaments and biological substances; Y92.89 Other specified places as the place of occurrence of the external cause; Z23 Encounter for immunization
CPT/HCPCS: 99232-AI; 99233-AI; A9575; C1751; C9113; J0692; J1650; J1720; J2310; J3370; J7030; J7050; J7120; Q9967

== ENCOUNTER → 2022-04-16 | Outpatient (CLI) | payer OTHER ==
[~2022-04-16] MED LIST changes: +KEPPRA250 MG PO; +LEVAQUIN 750MG750 M1 PO
== END ==
LOC: COL.VAS 09:11
DX: R00.1 Bradycardia, unspecified (principal)

== ENCOUNTER → 2022-04-27 | Outpatient (CLI) | payer OTHER | LOC: COL.RAD 07:25 | DX: C18.7 Malignant neoplasm of sigmoid colon (principal) | CPT/HCPCS: Q9967 ==

== ENCOUNTER → 2023-11-16 | Outpatient (CLI) | payer OTHER ==
[~2023-11-16] MED LIST changes: +Gadoterate 15 ML VIAL IV ONE
== END ==
LOC: COL.RAD 09:02
DX: R56.9 Unspecified convulsions (principal); Z87.898 Personal history of other specified conditions
CPT/HCPCS: A9575; J1644

== ENCOUNTER → 2023-12-07 | Outpatient (CLI) | payer OTHER ==
[~2023-12-07] MED LIST changes: +Barium Sulfate 2% Oral Susp 450 ML X 2 BOTTLES PO SCH; -Gadoterate 15 ML VIAL IV ONE; +Iohexol 300 - 100 ML VIAL IV ONE; +NS 100 ML IV SCH
== END ==
LOC: COL.RAD 07:28
DX: C18.7 Malignant neoplasm of sigmoid colon (principal); Z93.2 Ileostomy status
CPT/HCPCS: J1644; Q9967